=== PATIENT | female | born 1985 | race Caucasian/White ===

== ENCOUNTER → 2016-10-27 | Outpatient (CLI) | payer OTHER ==
[~2016-10-27] MED LIST: IBUPROFEN800 MG PO; NO MEDICATIONS; ULTRAM PO
--- NOTE | ~2016-10-27 | CR58 ---
[facility] A Service of [facility] & [facility] RADIOLOGY TEXT RESULTS PATIENT: CHAU SONG LOCATION: [facility] : [birth year] UNIT #: [id number] AGE: [address]: CAN WICK PA-C SEX: F ORDER DR: [id number] [address] [address] [id number] O MR#: [id number] Acc #: [id number] NAME: CHAU SONG : 1985 SEX: F STUDY DATE/TIME: 10/27/2016 11:13 UNIT: [facility] ROOM: STUDY DESCRIPTION: CR Cervical Spine 2 or 3 Views Attending Physician: Can Wick Pa-C Referring Physician: Can Wick Pa-C Ordering Physician: Jose Acuña M.D. Primary Care Physician: Dwight Tinsley M.D. MEDICAL IMAGING REPORT This report is preliminary unless electronic signature is present. EXAM 4 views cervical spine, 10/27/2016 HISTORY 31-year-old female with back and neck pain. The pain has been present for about 3 months. No known trauma. FINDINGS AP and lateral projections of the cervical spine show satisfactory preservation of the cervical lordosis. The cervical soft tissues are normal. All anterior and posterior elements in the cervical area are anatomically normal without identifiable fracture, dislocation, malignant lytic or sclerotic change, or arthritis. There is no congenital defect apparent. IMPRESSION Normal cervical spine. Dictated by... Jose Alas M.D. THIS IS AN ELECTRONICALLY VERIFIED REPORT Jose Alas M.D. at 10/27/2016 7:02 PM Nik TD: 10/27/2016 13:35 JOB #: [id number] MEDICAL IMAGING REPORT
--- NOTE | ~2016-10-27 | CR181 ---
[facility] A Service of [facility] RADIOLOGY TEXT RESULTS PATIENT: CHAU SONG LOCATION: [facility] : 87 UNIT #: [id number] AGE: [address]: CAN WICK PA-C SEX: F ORDER DR: [id number] [address] [address] [id number] O MR#: [id number] Acc #: [id number] NAME: CHAU SONG : 1985 SEX: F STUDY DATE/TIME: 10/27/2016 11:13 UNIT: [facility] ROOM: STUDY DESCRIPTION: CR Lumbar Spine 2 or 3 Views Attending Physician: Can Wick Pa-C Referring Physician: Can Wick Pa-C Ordering Physician: Jose Acuña M.D. Primary Care Physician: Dwight Tinsley M.D. MEDICAL IMAGING REPORT This report is preliminary unless electronic signature is present. EXAM Lumbar spine series. 10/27/[address] dated 03/02/2014 HISTORY Low back pain for the last three months. FINDINGS Three views of the lumbar spine were obtained. AP and lateral projections of the lumbar segment show good mineralization of both anterior and posterior elements. Small anterior/inferior endplate osteophyte at L5. They are all anatomically normal without indication of fracture, dislocation, or malignant change of a sclerotic or lytic type. There is no congenital defect noted. The sacroiliac joints are normal. IMPRESSION Normal lumbar spine. Dictated by... Lukasz Goodman M.D. THIS IS AN ELECTRONICALLY VERIFIED REPORT Lukasz Goodman M.D. at 10/29/2016 10:25 AM CPR/kiera TD: 10/27/2016 13:16 [facility] A Service [facility] RADIOLOGY TEXT RESULTS PATIENT: CHAU SONG LOCATION: [facility] : [birth year] UNIT #: [id number] AGE: [address]: CAN WICK PA-C SEX: F ORDER DR: JOB #: [id number] MEDICAL IMAGING REPORT
== END | disposition home or self-care (01) ==
LOC: SRAD 10:53
DX: M54.2 Cervicalgia (principal); M54.9 Dorsalgia, unspecified
CPT/HCPCS: 72040; 72100